=== PATIENT | female | born 1955 | race Caucasian/White ===

== ENCOUNTER → 2018-05-05 | Outpatient (CLI) | payer BC ==
[~2018-05-05] MED LIST: REGADENOSON 0.4 MG/5 ML DISP.SYRIN. IV ONE
--- NOTE | 2018-05-05 10:29 | PCVCIMAG ---
APPROVED REPORT Study performed: 05/05/2018 08:47:14 EXAM: Comprehensive 2D, Doppler, and color-flow Echocardiogram Patient Location: Echo lab Status: routine BSA: 1.85 HR: 83 bpmBP: 112/70 mmHg Rhythm: NSR Other Information Study Quality: Good Risk Factors: Cardiac Risk Factors: Hyperlipidemia, FHX of CAD Indications Chest Pressure Elevated CA Score 2D Dimensions IVSd: 8.68 (7-11mm)LVOT Diam: 19.00 (18-24mm) LVDd: 39.11 mm PWd: 8.83 (7-11mm)Ascending Ao: 30.07 (22-36mm) LVDs: 25.68 (25-40mm) Left Atrium: 33.66 (27-40mm) Aortic Root: 25.63 mm LV Single Plane 4CH: 57.92 % LV Single Plane 2CH: 64.79 % Biplane EF: 61.1 % Volumes Left Atrial Volume (Systole) Single Plane 4CH: 29.80 mLSingle Plane 2CH: 36.45 mL LA ESV Index: 19.00 mL/m2 Aortic Valve AoV Peak Saulo.: 1.32 m/s AO Peak Gr.: 6.97 mmHgLVOT Max P.25 mmHg LVOT Max V: 0.90 m/s PAULIE Vmax: 1.87 cm2 Mitral Valve E/A Ratio: 0.8 MV Decel. Time: 163.88 ms MV E Max Saulo.: 0.59 m/s MV A Saulo.: 0.75 m/s IVRT: 65.74 ms TDI E/Lateral E': 8.43E/Medial E': 7.38 Medial E' Saulo.: 0.08 m/s Lateral E' Saulo.: 0.07 m/s Pulmonary Valve PV Peak Saulo.: 0.84 m/sPV Peak Gr.: 2.79 mmHg Pulmonary Vein P Vein S: 0.61 m/sP Vein A: 0.38 m/s P Vein D: 0.51 m/sP Vein A Dur.: 83.0 msec P Vein S/D Ratio: 1.20 Tricuspid Valve RAP Estimate: 7.00 mmHg Left Ventricle The left ventricle is normal size. There is normal LV segmental wall motion. There is normal left ventricular wall thickness. Left ventricular systolic function is normal. The left ventricular ejection fraction is within the normal range. LVEF is 60-65%. Mild diastolic dysfunction is present (impaired relaxation pattern). Right Ventricle The right ventricle is normal size. The right ventricular systolic function is normal. Atria The left atrium size is normal. The right atrium size is normal. Aortic Valve The aortic valve is normal in structure. No aortic regurgitation is present. There is no aortic valvular stenosis. Mitral Valve The mitral valve is normal in structure. Trace mitral regurgitation. No evidence of mitral valve stenosis. Tricuspid Valve The tricuspid valve is normal in structure. Trace tricuspid regurgitation. Unable to assess PA pressure. Pulmonic Valve The pulmonary valve is normal in structure. There is no pulmonic valvular regurgitation. Great Vessels The aortic root is normal in size. IVC is normal in size and collapses >50% with inspiration. Pericardium There is no pericardial effusion. <Conclusion> The left ventricle is normal size. LVEF is 60-65%. Mild diastolic dysfunction is present (impaired relaxation pattern). The right ventricle is normal size. The left atrium size is normal. The aortic valve is normal in structure. Trace mitral regurgitation. Trace mitral regurgitation. Trace tricuspid regurgitation. Unable to assess PA pressure. The aortic root is normal in size. There is no pericardial effusion.
--- NOTE | 2018-05-06 12:49 | PCVCIMAG ---
APPROVED REPORT Imaging Protocol: Rest Tc-99m/Stress Tc-99m 1 day Study performed: 05/05/2018 09:49:44 Indication: Chest pain with diaphoresis, High Ca Score, CKD Patient Location: Out-Patient Stress Nurse: Annetta Laguna RN, Kiah Travis RN [place] Tech:DOMINGO Hopkins Ht: 5 ft 2 in Wt: 180 lbs BSA: 1.83 m2 HR: 64 bpm BP: 134/60 mmHg BMI: 32.9 Medical History Medical History: Hyperlipidemia Medications: Crestor, Zetia, Albuterol, Procardia Allergies: Many - Non relevant to this exam Cardiac Risk Factors: Age Pretest Chest Pain Characteristics: No chest pain Exercise History: Indeterminate Resting Data Rest SPECT myocardial perfusion imaging was performed in supine position 45 minutes following the intravenous injection of 10.2 mCi of Tc-99m Sestamibi. Time of rest injection: 0945 Date: 05/05/2018 Administration Route: IV Administration Site: Left AC Pharmacologic Stress Pharmacologic stress test was performed by injecting Regadenoson 0.4 mg IV push over 10-15 seconds immediately followed by the intravenous injection of 33.1 mCi of Tc-99m Sestamibi. Time of stress injection: 1100 Date: 05/05/2018 Administration Route: IV Administration Site: Left AC Gated Stress SPECT was performed 45 minutes after stress injection. The images were gated to evaluate regional wall motion and calculate left ventricular ejection fraction. Stress Test Details Stress Test: Pharmacologic stress testing performed using 0.4 mg of regadenoson per 5 mL given IV over 10 seconds. Reason for pharmacologic stress test: Arthritic hips. HRMax Heart Rate (APMHR): 156 bpm Resting HR: 64 bpmTarget HR (85% APMHR): 132 bpm Max HR Achieved: 96 bpm % of APMHR: 61 Recovery HR: 86 bpm BP Resting BP: 134/60 mmHg Max BP: 132/62 mmHg Recovery BP: 114/63 mmHg ECG Resting ECG: Normal Sinus Rhythm Stress ECG: Sinus Rhythm Recovery ECG: Sinus Rhythm Clinical Reason for Termination: Completed protocol Stress Symptoms: Chest tightness, Dizziness Exercise duration: 0 min 55 sec Symptoms resolved with caffeine. Stress ECG Conclusion ECG: Non-ischemic Study Quality Study: Good Study Data Post stress, the left ventricular ejection was 75%.. SSS: 0 SRS: 0 SDS: 0 TID = 0.84. Perfusion No evidence of stress induced ischemia or prior myocardial infarction. Wall Motion Normal left ventricular size and function with no regional wall motion abnormalities. Nuclear Conclusion No evidence of stress induced ischemia or prior myocardial infarction. Normal left ventricular size and function with no regional wall motion abnormalities. Post stress, the left ventricular ejection was 75%. No prior study available for comparison. Interpreted by: Stephan Márquez MD Electronically Approved: 05/05/2018 22:36:58 <Conclusion> ECG: Non-ischemic
== END | disposition home or self-care (01) ==
LOC: PCVCIMAG 08:42
PROVIDERS: ATTEND Internal Medicine Cardiovascular Disease
DX: R07.89 Other chest pain (principal); R93.1 Abnormal findings on diagnostic imaging of heart and coronary circulation; I25.10 Atherosclerotic heart disease of native coronary artery without angina pectoris; R61 Generalized hyperhidrosis; N18.9 Chronic kidney disease, unspecified
CPT/HCPCS: 78452; 93017; 93306; A9500; J2785

== ENCOUNTER → 2018-11-08 | Outpatient (CLI) | payer MEDICARE, OTHER | END | disposition home or self-care (01) | LOC: PCVCCLINIC 11:00 | PROVIDERS: ATTEND Internal Medicine Cardiovascular Disease | DX: I25.10 Atherosclerotic heart disease of native coronary artery without angina pectoris (principal); R93.1 Abnormal findings on diagnostic imaging of heart and coronary circulation; E78.00 Pure hypercholesterolemia, unspecified; M19.90 Unspecified osteoarthritis, unspecified site; Z82.49 Family history of ischemic heart disease and other diseases of the circulatory system | CPT/HCPCS: 36415; 80061; 93005; G0463 ==